=== PATIENT | male | born 1960 | race Caucasian/White ===

== ENCOUNTER 2021-10-19 06:35 | Outpatient (CLI) | payer OTHER ==
[~2021-10-19] VITALS: Ht 182.9 cm; Wt 102.0 kg
[2021-10-19] MEDS ORDERED: ATORVASTATIN CA40 MG PO (07:12)
[2021-10-19] MEDS ORDERED: CARISOPRODOL350 MG PO (07:13)
[2021-10-19] MEDS ORDERED: FOSINOPRIL SODI20 MG PO (07:14)
[2021-10-19] MEDS ORDERED: GABAPENTIN300 MG PO (07:14)
[2021-10-19] MEDS ORDERED: FENOFIBRATE160 MG PO (07:14)
[2021-10-19] MEDS ORDERED: HYDROCHLOROTHIA25 MG PO (07:15)
[2021-10-19] MEDS ORDERED: GLIPIZIDE10 MG PO (07:15)
[2021-10-19] MEDS ORDERED: GLUCOPHAGE 500500 MG PO (07:15)
[2021-10-19] MEDS ORDERED: MORPHINE SULFAT30 M4 PO (07:16)
[2021-10-19] MEDS ORDERED: ISOSORBIDE MONO30 MG PO (07:16)
[2021-10-19] MEDS ORDERED: MELOXICAM15 MG PO (07:16)
[2021-10-19] MEDS ORDERED: METOPROLOL SUCC25 MG PO (07:17)
[2021-10-19] MEDS ORDERED: NITROGLYCERIN0.4 MG SL (07:18)
[2021-10-19] MEDS ORDERED: VITAMIN D21250 MCG PO (07:19)
[2021-10-19] MEDS ORDERED: ZYRTEC10 M3 PO (07:20)
[2021-10-19] MEDS ORDERED: DAILY VALUE1 EACH PO (07:21)
[2021-10-19] MEDS ORDERED: BAYER CHEWABLE81 MG PO (07:22)
[2021-10-19] MEDS ORDERED: FISH OIL 1,0001 EAC7 PO (07:23)
[2021-10-19 07:26] LABS: HEMOGLOBIN 17.1 gm/dl (14.0-17.5); RED BLOOD COUNT 5.41 M/UL (4.20-5.50)
[2021-10-19 07:47] LABS: BUN/CREATININE RATIO 20 (0-10)
[2021-10-19] MEDS ORDERED: MELATONIN10 M2 PO (11:08)
[2021-10-19 19:38] LABS: HEMOGLOBIN 16.8 gm/dl (14.0-17.5); RED BLOOD COUNT 5.35 M/UL (4.20-5.50); WHITE BLOOD COUNT 7.2 K/UL (4.5-11.0)
[2021-10-19 20:12] LABS: BUN/CREATININE RATIO 19 (0-10)
[2021-10-20 02:06] LABS: HEMOGLOBIN 15.8 gm/dl (14.0-17.5); RED BLOOD COUNT 5.12 M/UL (4.20-5.50); WHITE BLOOD COUNT 8.2 K/UL (4.5-11.0)
[2021-10-20 02:32] LABS: BUN/CREATININE RATIO 20 (0-10)
[2021-10-20] MEDS ORDERED: BRILINTA 90 MG90 MG PO (11:56)
== END 2021-10-20 14:11 | disposition home or self-care (01) ==
LOC: PROG CARE 06:35 → CATH 06:35 → PROG CARE 10:51 → CATH 10:51
PROVIDERS: Internal Medicine Interventional Cardiology
DX: I25.118 Atherosclerotic heart disease of native coronary artery with other forms of angina pectoris (principal); I25.84 Coronary atherosclerosis due to calcified coronary lesion; I10 Essential (primary) hypertension; E78.5 Hyperlipidemia, unspecified; E11.9 Type 2 diabetes mellitus without complications; I45.10 Unspecified right bundle-branch block; E55.9 Vitamin D deficiency, unspecified; G89.4 Chronic pain syndrome; Z88.1 Allergy status to other antibiotic agents; Z88.0 Allergy status to penicillin; Z88.2 Allergy status to sulfonamides; Z72.0 Tobacco use
CPT/HCPCS: 36415; 71045; 80048; 82550; 82553; 82962; 84484; 85025; 85027; 85347; 85610; 85730; 93005; 99152; 99153; C1725; C1769; C1874; C1887; C1894; C9600; J1644; J2250; J3010; J3246; Q9967